=== PATIENT | male | born 1980 | race Caucasian/White ===

== ENCOUNTER 2019-08-20 19:51 | Emergency (ER) | payer OTHER, SELFPAY ==
--- NOTE | ~2019-08-20 | XR_ITS ---
EXAMINATION: XR chest 2V DATE: 08/20/2019 20:53 INDICATION: Left-sided chest pain. TECHNIQUE: PA and lateral views of the chest were obtained. COMPARISON: Thoracic spine radiographs dated 04/05/2004 FINDINGS: Mild right apical pleural-parenchymal scarring. Likely benign calcified density projecting between th e anterior left first and second ribs which is unchanged since the prior study. Approximately 2 x 1 c m nodular opacity the lateral left midlung zone projecting over the inferior margin of the anterior l eft fourth rib the region of which is not included on the prior imaging for comparison. No other airs pace opacities, pulmonary edema, pleural effusion or pneumothorax. The cardiomediastinal silhouette i s normal. Mild thoracic spondylosis. IMPRESSION: 1. Indeterminate nodular opacity the lateral left midlung zone which could represent old granulomatou s disease or less likely neoplasm. Consider low-dose noncontrast chest CT for more definitive determi nation. Reviewed, dictated and finalized at location A. IMPRESSION: 1. Indeterminate nodular opacity the lateral left midlung zone which could repr esent old granulomatous disease or less likely neoplasm. Consider low-dose nonc ontrast chest CT for more definitive determination.
--- NOTE | ~2019-08-20 | CT_ITS ---
EXAMINATION: CT chest w con DATE: 08/20/2019 21:19 INDICATION: left chest wall pain, swelling, wbc TECHNIQUE: Computed tomography (CT) of the chest was performed with 75 mL Omnipaque-350 intravenous c ontrast. Additional 3D reconstructions utilizing coronal maximum intensity projection (MIP) were perf ormed. Automated exposure control and iterative reconstruction technique were employed. The dose-heber th product was 158.62 mGy-cm. COMPARISON: None FINDINGS: Bilateral calcified pulmonary nodules consistent with old granulomatous disease. These include 2 larg er calcified nodules in the left upper lobe corresponding to the opacities of concern on the prior ch est radiograph. Mild right apical pleural-parenchymal scarring. Minimal dependent atelectasis in the bilateral lower lobes. Bilateral scattered subtle tiny centrilobular groundglass opacities with tree- in-bud pattern consistent with bronchiolitis. No more focal consolidation, pulmonary edema, pleural e ffusion or pneumothorax. Heart size is normal. No pericardial effusion. Thoracic aorta is normal in c aliber with no dissection. Although not performed as a dedicated pulmonary embolism protocol study th ere is excellent contrast pass location of the pulmonary arteries and no motion artifact yielding dennise gnostic quality study which demonstrates no pulmonary embolism. Calcified bilateral hilar and mediast inal lymph nodes consistent with old granulomatous disease. Mild thoracic spondylosis. A few small sp lenic calcified consistent with old granulomatous disease. Visualized upper abdomen is otherwise unre markable. IMPRESSION: 1. Diffuse bilateral subtle tiny centrilobular groundglass opacities with tree-in-bud pattern consist ent with bronchiolitis. 2. Stigmata of old granulomatous disease including 2 larger calcified nodules in the left lung corres ponding to the opacities of concern on prior radiograph. Reviewed, dictated and finalized at location A. IMPRESSION: 1. Diffuse bilateral subtle tiny centrilobular groundglass opacities with tree- in-bud pattern consistent with bronchiolitis. 2. Stigmata of old granulomatous disease including 2 larger calcified nodules i n the left lung corresponding to the opacities of concern on prior radiograph.
[2019-08-20 19:55] VITALS: BP 116/74; PULSE 97; RESP 20; TEMP 36.6; O2SAT 100
[2019-08-20 20:06] VITALS: BP 110/73; PULSE 92; RESP 18; O2SAT 100
--- NOTE | 2019-08-20 20:29 | ED.CHESTPAIN ---
HPI - Chest Pain General Chief Complaint: Chest Pain Stated Complaint: pulled something in chest Time Seen by Provider: 08/20/19 20:21 Source: patient Mode of arrival: ambulatory Limitations: no limitations History of Present Illness HPI narrative: This patient is a 38 year old male who presents for evaluation of left anterior chest pain. He states he woke up from his sleep yesterday with pain to left anterior chest and he states his pain is worse with lifting his left arm. He took aspirin last night for his pain and he continues to have pain. He denies heavy lifting or trauma. He denies cough, sob, nausea, vomiting or fever. Related Data Allergies Allergy/AdvReac Type Severity Reaction Status Date / Time morphine Allergy Mild Verified 09/24/18 14:52 peanut Allergy Unknown Verified 09/24/18 14:52 Review of Systems Review of Systems: All systems reviewed & are unremarkable except as noted in HPI and below Constitutional: Constitutional: Denies chills and Denies fever(s) Cardiovascular: Cardiovascular: Reports chest pain, Denies rapid heart rate, Denies radiating jaw, neck or arm pain and Denies slow heart rate Respiratory: Respiratory: Denies cough, Denies dyspnea and Denies wheezing Gastrointestinal: Gastrointestinal: Denies abdominal pain, Denies diarrhea, Denies nausea and Denies vomiting Musculoskeletal: Musculoskeletal: Reports back pain PMFSH Past Medical History Medical History (Updated 08/21/19 @ 00:00 by Renata Daemsimone) Patient denies medical problems Surgical History Surgical History (Updated 08/20/19 @ 20:30 by Hellen Felipe MD) No significant past surgical history Social History Social History (Updated 08/20/19 @ 20:31 by Hellen Felipe MD) Smoking packs per day: 1 Smoking cigarettes per day: 20.0 Smoking status: Current every day smoker Alcohol intake: never Substance use type: marijuana Exam Narrative: Exam Narrative: GENERAL: Well-appearing, well-nourished, and in no acute distress. HEAD: Normocephalic, atraumatic EYES: PERRLA and EOMI, conjunctiva clear without discharge THROAT:Mucous membranes moist, Oropharynx normal without erythema, exudate, peritonsillar swelling or fluctuance NECK: Supple, without lymphadenopathy or mass RESPIRATORY: No respiratory distress, Airway patent, Respirations non-labored, Clear to auscultation without rales, rhonchi or wheeze; reproducible tenderness left anterior with mild swelling, no crepitus. HEART: Regular rate and rhythm. No murmur heard. Normal peripheral pulses. ABDOMEN: Soft, nontender, nondistended, normal active bowel sounds. No masses. No rebound or guarding, No organomegaly. EXTREMITIES: No edema, normal strength with full range of motion. SKIN: Warm, dry, normal color without rash NEURO: Alert and oriented x3. CN 2-12 grossly intact. No focal deficits. PSYCH: Normal mood and affect. Course Reevaluation(s) Reevaluation #1: I Discussed with patient about CT findings. his pain is likely muscular. He denies cough or sob. Date: 08/20/19 Time: 23:10 Vital Signs Vital signs: Vital Signs Temperature 97.9 F 08/20/19 19:55 Pulse Rate 97 08/20/19 19:55 Respiratory Rate 20 08/20/19 19:55 Blood Pressure 116/74 08/20/19 19:55 Pulse Oximetry 100 08/20/19 19:55 Temperature 98.3 F 08/20/19 23:21 Pulse Rate 79 08/20/19 23:21 Respiratory Rate 19 08/20/19 23:21 Blood Pressure 116/74 08/20/19 23:21 Pulse Oximetry 100 08/20/19 23:21 MDM - Chest Pain Lab Data Attestation: I reviewed the patient's lab results. Result diagrams: 08/20/19 20:31 08/20/19 20:31 Labs: Lab Results 08/20/19 08/20/19 Range/Units 20:31 20:31 WBC 12.0 H (4.5-10.0) K/mm3 RBC 4.91 (4.6-6.20) M/mm3 Hgb 15.1 (14.0-18.0) g/dL Hct 45.4 (42.0-52.0) % MCV 92.5 (80-100) fl MCH 30.8 (26-34) pg MCHC 33.3 (32-36) g/dl RDW 13.7 (11.5-14.5)
[2019-08-20 20:37] LABS: Basophils Absolute Auto 0.1 K/mm3 (0.0-0.1); Basophils Percent Auto 0.7 % (0.2-1.2); Eosinophils Absolute Auto 0.5 K/mm3 (0-0.3); Eosinophils Percent Auto 3.9 % (0-4.4); Hematocrit 45.4 % (42.0-52.0); Hemoglobin 15.1 g/dL (14.0-18.0); Immature Granulocyte Absolute 0.07 K/mm3 (0.00-0.031); Immature Granulocyte Percent A 0.6 % (0-0.5); Lymphocytes Absolute Auto 2.68 K/mm3 (0.9-3.2); Lymphocytes Percent Auto 22.4 % (18.3-44.2); Mean Corpuscular HGB Conc 33.3 g/dl (32-36); Mean Corpuscular Hemoglobin 30.8 pg (26-34); Mean Corpuscular Volume 92.5 fl (80-100); Mean Platelet Volume 9.2 fl (7.4-10.4); Monocytes Percent Auto 8.7 % (2.6-8.5); Neutrophils Absolute Auto 7.6 K/mm3 (1.3-6.7); Neutrophils Percent Auto 63.7 % (45.5-73.1); Platelet Count Result 305 k/mm3 (150-375); Red Blood Count 4.91 M/mm3 (4.6-6.20); Red Cell Distribution Width 13.7 % (11.5-14.5)
[2019-08-20] MEDS: KETOROLAC 30 MG/ML VIAL (*BKC) IV PUSH (20:39)
[2019-08-20 20:50] LABS: Alanine Aminotransferase 26 U/L (4-50); Albumin Level 4.5 g/dL (3.5-5.1); Alkaline Phosphatase 77 U/L (38-126); Aspartate Amino Transferase 28 U/L (17-59); Bilirubin,Total 0.2 mg/dL (0.2-1.3); Blood Urea Nitrogen 14 mg/dL (9-20); CRP 2.9 mg/dL (<1.0); Calcium 9.1 mg/dL (8.4-10.2); Carbon Dioxide 28 mmol/L (22-30); Chloride 102 mmol/L (98-107); Estimated CRCL calculation 87 ml/min; Estimated Glomerular Filt Rate > 60; Glucose 95 mg/dL (75-110); Potassium 4.1 mmol/L (3.4-5.0); Sodium 136 mmol/L (137-145)
[2019-08-20 21:45] VITALS: BP 132/88; PULSE 61; RESP 18; O2SAT 98
[2019-08-20 23:01] VITALS: BP 126/72; PULSE 70; RESP 22; O2SAT 100
--- NOTE | 2019-08-20 23:13 | ECG_ITS ---
Measurements Intervals [place] Rate: 75 P: 78 HI: 127 QRS: 81 QRSD: 93 T: 43 QT: 312 QTc: 351 Interpretive Statements SINUS RHYTHM POSSIBLE LEFT ATRIAL ENLARGEMENT INCOMPLETE RIGHT BUNDLE BRANCH BLOCK BORDERLINE ECG Electronically Signed On 08-21-2019 8:09:51 CDT by Simba Lr D.O.
[2019-08-20 23:21] VITALS: BP 116/74; PULSE 79; RESP 19; TEMP 36.8; O2SAT 100
== END 2019-08-20 23:22 | disposition home or self-care (01) ==
PROVIDERS: Emergency Provider General Practice; PCP Internal Medicine
DX: R07.89 Other chest pain (principal); F17.210 Nicotine dependence, cigarettes, uncomplicated; R91.8 Other nonspecific abnormal finding of lung field; I45.10 Unspecified right bundle-branch block; R94.31 Abnormal electrocardiogram [ECG] [EKG]
CPT/HCPCS: 36415; 71046; 71260; 80053; 85025; 86140; 93005; 96374; 99284; J1885; Q9967

== ENCOUNTER 2020-01-09 01:17 | Emergency (ER) | payer OTHER, SELFPAY ==
[2020-01-09 01:19] VITALS: BP 138/81; PULSE 77; RESP 16; TEMP 36.2; O2SAT 100
--- NOTE | 2020-01-09 01:29 | ED.EYEPROB ---
HPI - Eye Problem General Chief complaint: Eye Problems Stated complaint: welding flash burn, cant open eyes Time Seen by Provider: 01/09/20 01:28 Source: patient and family Mode of arrival: ambulatory Limitations: no limitations History of Present Illness HPI Narrative: Patient is a 39-year-old male who presented for evaluation of bilateral eye pain after a flash burn from welding without eye protection. Patient is reporting photosensitivity to light. He is denying blurry vision. He denies any foreign body sensation. Patient does not wear contact lenses. He reports tearing and watering of the eyes. He reports bilateral eye redness. Related Data Allergies Allergy/AdvReac Type Severity Reaction Status Date / Time morphine Allergy Mild Verified 09/24/18 14:52 peanut Allergy Unknown Verified 09/24/18 14:52 Review of Systems Review of Systems: Narrative: CONSTITUTIONAL: Denies fever CARDIOVASCULAR: Denies chest pain RESPIRATORY: Denies cough or dyspnea. GASTROINTESTINAL: Denies abdominal pain SKIN: Denies rash MUSCULOSKELETAL: Denies back pain NEUROLOGIC: Denies headache PMFSH Past Medical History Medical History Patient denies medical problems Surgical History Surgical History No significant past surgical history Social History Social History Smoking packs per day: 1 Smoking cigarettes per day: 20.0 Smoking status: Current every day smoker Alcohol intake: never Substance use type: marijuana Exam Narrative: Exam Narrative: GENERAL: Awake, alert, conversant HEAD: Normocephalic, atraumatic. EYES: 2+ PERRLA and EOMI without difficulty. Bilateral conjunctival injection. Tearing of eyes bilaterally. ENT: Nares clear, no rhinorrhea or epistaxis. Mucous membranes moist. NECK: Supple. CHEST: No respiratory distress, breathing even and non labored HEART: Regular rate, sinus rhythm ABDOMEN:Non distended, non tender EXTREMITIES: Normal range of motion. No edema. SKIN: Warm, dry, no rash. NEURO:No focal deficits. Alert and oriented x3 Course Vital Signs Vital signs: Vital Signs Temperature 36.2 C L 01/09/20 01:19 Pulse Rate 77 01/09/20 01:19 Respiratory Rate 16 01/09/20 01:19 Blood Pressure 138/81 01/09/20 01:19 Pulse Oximetry 100 01/09/20 01:19 Temperature 36.2 C L 01/09/20 01:19 Pulse Rate 77 01/09/20 01:19 Respiratory Rate 16 01/09/20 01:19 Blood Pressure 138/81 01/09/20 01:19 Pulse Oximetry 100 01/09/20 01:19 MDM - Eye Problem MDM Narrative Medical decision making narrative: Patient presented for evaluation of flash burn to the eyes. At the time of assessment, visual acuity is intact. Patient has bilateral conjunctival injection and photosensitivity. On exam, there is a corneal abrasion in the right eye. Able to turkey picker some cell and flare in the anterior chamber as well. Patient extraocular movements are intact. pH of the eye is alkalotic on pH strip, this patient's eye was irrigated in each side with approximately 300 mL of flushes. pH retested and continues to be alkalotic. In consultation with [facility] ophthalmology physician, recommended recurrent irrigation until pH normalizes. Also recommended patient to get prednisolone eyedrops as well as cyclopentolate eyedrop prescriptions for pain. Patient will get erythromycin ointment for right-sided corneal abrasion. Patient refused to have additional irrigation. Patient stated he wanted to be discharged home. Patient does have follow-up with [facility] ophthalmology at 11 AM, I did explain that he would be leaving AGAINST MEDICAL ADVICE prior to adequate irrigation and this could lead an deterioration or possible vision loss. Patient voices understanding and refuses to stay for additional irrigation. Patient still given prescri
--- NOTE | 2020-01-09 04:24 | PC.NURSE ---
pt refusing having eyes irrigated per verbal request . notified. pt statesz i just want to go home. md states pt will have to sign ama form. pt educated on risks of not having eyes irrigated.
[2020-01-09 04:33] VITALS: BP 138/88; PULSE 70; RESP 16; O2SAT 99
== END 2020-01-09 04:40 | disposition left against medical advice (07) ==
PROVIDERS: Emergency Provider Emergency Medicine; PCP Internal Medicine
DX: H16.133 Photokeratitis, bilateral (principal); S05.01XA Injury of conjunctiva and corneal abrasion without foreign body, right eye, initial encounter; H20.00 Unspecified acute and subacute iridocyclitis; F17.210 Nicotine dependence, cigarettes, uncomplicated; W89.8XXA Exposure to other man-made visible and ultraviolet light, initial encounter
CPT/HCPCS: 90715; 99283; A9270; J7030

== ENCOUNTER 2020-09-06 21:01 | Emergency (ER) | payer OTHER, SELFPAY ==
[2020-09-06 21:24] VITALS: BP 134/71; PULSE 77; RESP 18; TEMP 36.8; O2SAT 100
--- NOTE | 2020-09-06 23:00 | PC.NURSE ---
called patient to go back to room multiple times and did not answer
== END 2020-09-06 23:00 | disposition left against medical advice (07) ==
LOC: ANHED 23:02
PROVIDERS: PCP Internal Medicine
DX: Z53.21 Procedure and treatment not carried out due to patient leaving prior to being seen by health care provider (principal)
CPT/HCPCS: 99199

== ENCOUNTER 2023-08-24 01:28 | Emergency (ER) | payer OTHER, SELFPAY ==
[2023-08-24 01:27] VITALS: BP 130/80; PULSE 71; RESP 16; TEMP 36.6; O2SAT 99
--- NOTE | 2023-08-24 01:56 | ED.GENADULT ---
HPI - General Adult General Chief complaint: Skin/Abscess/Foreign Body Stated complaint: burning to L upper arm Time Seen by Provider: 08/24/23 01:46 History of Present Illness HPI narrative: this is a 42-year-old male presenting for possible bite to his left upper extremity. Patient says that while he was walking home from the store around 1:00 a.m. he had a bite like sensation over his left biceps. He thinks that he got bit by a bug but he has not seen any bugs. He then had a some slight burning sensation. He called an ambulance and was brought to the hospital. No other complaints this time. Related Data Home Medications Medication Instructions Recorded Confirmed No Home Medications 09/06/20 09/06/20 Allergies Allergy/AdvReac Type Severity Reaction Status Date / Time morphine Allergy Mild Hives Verified 02/24/23 12:12 peanut Allergy Unknown Other Verified 02/24/23 12:12 [facility] Past Medical History Medical History Patient denies medical problems Surgical History Surgical History No significant past surgical history Social History Social History Smoking packs per day: 1 Smoking cigarettes per day: 20.0 Smoking status: Current every day smoker Alcohol intake: never Substance use type: marijuana Exam Narrative: APPEARANCE: No apparent distress. Head: atraumatic. EYES: EOMI, NOSE: Atraumatic NECK: Trachea midline RESPIRATORY: No increased rate of breathing CARDIOVASCULAR: RRR, ABDOMINAL: Non-distended MUSCULOSKELETAl: Focal exam of the left Upper extremity revealed no insect bites. No obvious erythema, no areas of fluctuance. Compartments are soft. Pulses are intact. tamper operator strength intact NEURO: Alert. Moving 4/4 extremities SKIN:: patient's hands are covered in dirt PSYCHIATRIC: Normal affect Course Vital Signs Vital signs: Vital Signs Temperature 97.8 F 08/24/23 01:27 Pulse Rate 71 08/24/23 01:27 Respiratory Rate 16 08/24/23 01:27 Blood Pressure 130/80 08/24/23 01:27 Pulse Oximetry 99 08/24/23 01:27 Oxygen Delivery Room Air 06/24/24 01:27 Temperature 97.8 F 08/24/23 01:27 Pulse Rate 71 08/24/23 01:27 Respiratory Rate 16 08/24/23 01:27 Blood Pressure 130/80 08/24/23 01:27 Pulse Oximetry 99 08/24/23 01:27 Oxygen Delivery Room Air 08/24/23 01:27 Medical Decision Making MDM Narrative Medical decision making narrative: -Course: 42-year-old male presenting for possible bug bite to his left bicep. Physical exam unremarkable with no findings of a bug bite or otherwise Patient discharged. -DDX includes but is not limited to: Bug bite, paresthesia, substance use disorder -Shared decision making / Disposition: discharged Vital Signs Vital Signs: Vital Signs Temperature 97.8 F 08/24/23 01:27 Pulse Rate 71 08/24/23 01:27 Respiratory Rate 16 08/24/23 01:27 Blood Pressure 130/80 08/24/23 01:27 Pulse Oximetry 99 08/24/23 01:27 Oxygen Delivery Room Air 08/24/23 01:27 Temperature 97.8 F 08/24/23 01:27 Pulse Rate 71 08/24/23 01:27 Respiratory Rate 16 08/24/23 01:27 Blood Pressure 130/80 08/24/23 01:27 Pulse Oximetry 99 08/24/23 01:27 Oxygen Delivery Room Air 08/24/23 01:27 Discharge Plan Discharge Clinical Impression: Bug bite Patient Disposition: Home, Self-Care Condition: Stable Instructions: Antibiotic Form, Insect Bite or Sting (ED) Additional Instructions: please follow-up with your primary care physician. Return if you develop severe pain or any skin changes. Prescriptions: No Action No Home Medications Follow-up/Referrals: Alejandro,Steve Rodriguez MD [Primary Care Provider] -
== END 2023-08-24 02:23 | disposition home or self-care (01) ==
LOC: ANHED 01:59
PROVIDERS: Emergency Provider Emergency Medicine
DX: S40.862A Insect bite (nonvenomous) of left upper arm, initial encounter (principal); F17.210 Nicotine dependence, cigarettes, uncomplicated; W57.XXXA Bitten or stung by nonvenomous insect and other nonvenomous arthropods, initial encounter
CPT/HCPCS: 99281

== ENCOUNTER 2024-05-07 15:01 | Emergency (ER) | payer OTHER, SELFPAY ==
--- NOTE | 2024-05-07 15:04 | ECG_ITS ---
Test Date: 2024-05-07 15:44:19 Measurements Intervals [place] Rate: 71 P: 77 FL: 142 QRS: 83 QRSD: 93 T: 70 QT: 350 QTc: 382 Interpretive Statements SINUS RHYTHM MINOR RV CONDUCTION DELAY BORDERLINE ECG No previous ECG available for comparison Electronically Signed On 05-07-2024 16:08:49 HAND GLASS CUTTER by Abhianv Shaw M.D.
--- OUTSIDE RECORDS SUMMARY | 2024-05-07 15:04 | XMS_ITS | Clinical Summary ---
Author Organization [facility] Address [address] [place] [id number] Care Team Providers Care Forensic Economist Name Role Phone Unavailable Primary Care Provider Unavailabl e Social History Tobacco Use Types Packs/Day Years Used Date Smoking Tobacco: Never Assessed Sex and Gender Information Value Date Recorded Sex Assigned at Not on file Legal Sex Male 8:23 PM CDT Gender Identity Not on file Sexual Orientation Not on file Plan of Treatment Health Maintenance Due Date Last Done Comments Annual Physical 08/31/1982 Hepatitis C 08/31/1997 DTaP, Tdap and Td Vaccines ( 1 - Tdap) 08/31/1998 Hepatitis B Vaccines (1 of 3 - 19+ 3-dose series) 08/31/1998 COVID-19 Vaccine (2023-2 5 season) 2023 Influenza Adult (#1) 2023 HPV Vaccines Aged Out No longer eligi ble based on patient's age to complete this topic Meningococcal B Vaccine Aged Out No l onger eligible based on patient's age to complete this topic Meningococcal Vaccine Aged Out No talha brian eligible based on patient's age to complete this topic Pneumococcal Vaccine: Pediat rics (0 to 5 Years) and At-Risk Patients (6 to 64 Years) Aged Out No longer eligible b ased on patient's age to complete this topic RSV Immunizations Under 20 Months Aged Out No longer eligible based on patient's age to complete this topic
[2024-05-07 15:34] VITALS: BP 108/67; PULSE 82; RESP 18; TEMP 36.5; O2SAT 100
--- NOTE | 2024-05-07 17:38 | PC.NURSE ---
No answer when called-unable to locate in waiting room or surrounding area
--- OUTSIDE RECORDS SUMMARY | 2024-05-07 17:45 | XMS_ITS | Clinical Summary ---
Author Organization [facility] Address [address] [place] [id number] Care Team Providers Care Zipper Measurer Name Role Phone Unavailable Primary Care Provider [...]
== END 2024-05-07 17:38 | disposition left against medical advice (07) ==
PROVIDERS: Emergency Provider Emergency Medicine
DX: R07.9 Chest pain, unspecified (principal)
CPT/HCPCS: 93005; 99199

== ENCOUNTER 2024-07-15 23:39 | Emergency (ER) | payer OTHER, SELFPAY ==
--- NOTE | ~2024-07-15 | CT_ITS ---
EXAMINATION: CT abdomen pelvis wo con DATE: 07/16/2024 07:35 INDICATION: Kidney stones TECHNIQUE: Computed tomography (CT) of the abdomen and pelvis was performed without intravenous contr ast. Automated exposure control and iterative reconstruction technique were employed. The dose-length product was 199.15 mGy-cm. COMPARISON: 09/24/2018 FINDINGS: Calcified right lower lobe nodule along with a few splenic calcifications consistent with old granulo matous disease. Chronic diffuse tree-in-bud pattern in the bilateral lower lobes with numerous subtle tiny centrilobular groundglass opacities. Heart size normal. No pericardial or pleural effusion. Priya er, gallbladder and pancreas are normal. Bilateral low-attenuation adrenal adenomas the largest on th e right measuring 2 x 1.5 cm. Kidneys and ureters are normal with no urolithiasis, hydroureteronephro sis or perinephric/ureteral stranding. Bowels including the appendix are normal. Decompressed bladder is unremarkable. No free intraperitoneal gas or fluid. No pathologically enlarged abdominal or pelvi c lymphadenopathy. Severe disc height loss with degenerative endplate changes at L5-S1. Unchanged chr onic mild anterior wedging at T12 and L1. There is additional age-indeterminate L4 compression fractu re with 20% anterior vertebral body height loss which is new since the prior study. IMPRESSION: 1. No nephrolithiasis or acute intra-abdominal/pelvic process. 2. Age-indeterminate mild L4 compression fracture which is new since the prior study. 3. Bilateral subtle tiny centrilobular groundglass opacities in tree-in-bud pattern consistent with b ronchiolitis. Reviewed, dictated and finalized at location A. IMPRESSION: 1. No nephrolithiasis or acute intra-abdominal/pelvic process. 2. Age-indeterminate mild L4 compression fracture which is new since the prior study. 3. Bilateral subtle tiny centrilobular groundglass opacities in tree-in-bud pat tern consistent with bronchiolitis.
--- OUTSIDE RECORDS SUMMARY | 2024-07-15 23:41 | XMS_ITS | Clinical Summary ---
Author Organization [facility] Address [address] [place] [id number] Care Team Providers Care Sap Mobility Architect Name Role Phone Unavailable Primary Care Provider [...] 08/31/1998 COVID-19 Vaccine (2023-2 5 season) 2023 HPV Vaccines Aged Out No longer eligi ble based on patient's age to complete this topic Meningococcal B Vaccine Aged Out No l onger eligible based on patient's age to complete this topic Meningococcal Vaccine Aged Out No talha brian eligible based on patient's age to complete this topic Pneumococcal Vaccine: Pediat rics (0 to 5 Years) and At-Risk Patients (6 to 49 Years) Aged Out No longer eligible b ased on patient's age to complete this topic RSV Immunizations Under 20 Months Aged Out No longer eligible based on patient's age to complete this topic
[2024-07-15 23:49] VITALS: BP 124/62; PULSE 58; RESP 24; TEMP 36.6; O2SAT 100
[2024-07-16 06:04] VITALS: BP 133/77; PULSE 89; RESP 14; O2SAT 100
[2024-07-16 06:14] LABS: Basophils Absolute Auto 0.1 K/mm3 (0.0-0.1); Basophils Percent Auto 0.3 % (0.2-1.2); Eosinophils Absolute Auto 0.1 K/mm3 (0-0.3); Eosinophils Percent Auto 0.3 % (0-4.4); Hematocrit 45.2 % (42.0-52.0); Hemoglobin 14.3 g/dL (14.0-18.0); Immature Granulocyte Absolute 0.06 K/mm3 (0.00-0.031); Immature Granulocyte Percent A 0.4 % (0-0.5); Lymphocytes Absolute Auto 1.52 K/mm3 (0.9-3.2); Lymphocytes Percent Auto 9.5 % (18.3-44.2); Mean Corpuscular HGB Conc 31.6 g/dl (32-36); Mean Corpuscular Hemoglobin 29.5 pg (26-34); Mean Corpuscular Volume 93.2 fl (80-100); Mean Platelet Volume 8.7 fl (7.4-10.4); Monocytes Absolute Auto 1.2 K/mm3 (0.1-0.6); Monocytes Percent Auto 7.6 % (2.6-8.5); Neutrophils Absolute Auto 13.1 K/mm3 (1.3-6.7); Neutrophils Percent Auto 81.9 % (45.5-73.1); Platelet Count Result 350 k/mm3 (150-375); Red Blood Count 4.85 M/mm3 (4.6-6.20); Red Cell Distribution Width 13.6 % (11.5-14.5)
[2024-07-16 06:31] LABS: Alanine Aminotransferase 22 U/L (6-50); Albumin Level 4.4 g/dL (3.5-5.1); Alkaline Phosphatase 62 U/L (38-126); Anion Gap 6 mmol/L (4-12); Aspartate Amino Transferase 34 U/L (17-59); Bilirubin,Total 0.5 mg/dL (0.2-1.3); Blood Urea Nitrogen 13 mg/dL (9-20); Calcium 9.5 mg/dL (8.4-10.2); Carbon Dioxide 25 mmol/L (22-30); Chloride 106 mmol/L (98-107); Estimated Glomerular Filt Rate > 60; Glucose 113 mg/dL (65-110); Potassium 4.7 mmol/L (3.4-5.0); Sodium 137 mmol/L (137-145)
[2024-07-16 07:06] VITALS: BP 134/84; PULSE 65; RESP 16; O2SAT 100
--- NOTE | 2024-07-16 07:39 | ED_ITS ---
HPI - Male Genitourinary General Chief complaint: Urogenital-Male Stated complaint: Backpain-poss kidney stone Time Seen by Provider: 07/16/24 07:33 Source: patient Mode of arrival: ambulatory Limitations: no limitations History of Present Illness HPI Narrative: Patient presents with left flank pain radiating to his groin starting at 9pm. States he has had kidney stones twice previously but they passed on their own without surgery/intermission. does not have a urologist. LBM yesterday w/o diarrhea, constipation, blood. States he was diaphoretic but no fevers or chills. Does admit drinking a lot of soda. Pain had been 11/30, now 5/10 occurring intermittently. Also requesting tetanus be updated as he stepped on a nail at his left foot a week or so ago. Does not have a PCP. Related Data Allergies Allergy/AdvReac Type Severity Reaction Status Date / Time morphine Allergy Mild Hives Verified 07/15/24 23:40 peanut Allergy Unknown Other Verified 07/15/24 23:40 PMFSH Past Medical History Medical History History of kidney stones x2 Surgical History Surgical History No significant past surgical history Social History Social History Smoking packs per day: 1 Smoking cigarettes per day: 20.0 Smoking status: Current every day smoker Alcohol intake: never Substance use type: marijuana Exam 2 Const: General: healthy appearing, no acute distress and alert; No confusion, diaphoretic or ill appearing Nutritional Appearance: well nourished L imitations: no limitations HENMT: Head: normal to inspection Other: gross auditory acuity intact Eyes: Direct Ophthalmoscopy: no photophobia Neck: Neck: no meningeal signs Other: supple Resp: Effort & Inspection: normal respiratory effort, not labored, no retractions, not tachypneic and no use of accessory muscles GI: Inspection: non-distended GI Palp: Yes Soft to palpation : General: Yes CVA tenderness on the left Skin: General skin exam: normal color and no jaundice Other: well healing wound on plantar aspect of left foot Neuro: General: patient oriented x3 and moves all extremities Speech: n ormal speech Extrem: General: no pedal edema Psych: Mental Status: mental status grossly normal Affect: normal affect, No Sad affect present and No Anxious affect present Attitude: cooperative Course Vital Signs Vital signs: Vital Signs Temperature 97.8 F 07/15/24 23:49 Pulse Rate 58 L 07/15/24 23:49 Respiratory Rate 24 H 07/15/24 23:49 Blood Pressure 124/62 07/15/24 23:49 Pulse Oximetry 100 07/15/24 23:49 Oxygen Delivery Room Air 07/15/24 23:49 Temperature 97.8 F 07/15/24 23:49 Pulse Rate 74 07/16/24 09:17 Respiratory Rate 16 07/16/24 09:17 Blood Pressure 134/84 07/16/24 07:06 Pulse Oximetry 98 07/16/24 09:17 Oxygen Delivery Room Air 07/15/24 23:49 MDM - Male Genitourinary MDM Narrative Medical decision making narrative: Patient presnts with concern for kidney stone althouth pain better now. In the ED he is afebrile with VS notable for mild bradycardia and tachypnea, both resolved on reassessment. Patient requesting tetanus shot for wound he sustained a few weeks ago when he stepped on a nail which otherwise appears appropriate and well healing on exam. He has a leukocytosis. Microscopic hematuria but otherwise urine does not appear infected. Differential Diagnosis Differential diagnosis: Likely urinary tract infection (pyelo) and other (muscle strain; kidney stone) Lab Data Attestation: I reviewed the patient's lab results. 07/16/24 06:06 07/16/24 06:06 Labs: Lab Results 07/16/24 07/16/24 Range/Units 06:06 08:37 WBC 16.0 H (4.5-10.0) K/mm3 RBC 4.85 (4.6-6.20) M/mm3 Hgb 14.3 (14.0-18.0) g/dL Hct 45.2 (42.0-52.0) % MCV 93.2 (80-100) fl MCH 29.5 (26-34) pg MCHC 31.6 L (32-36) g/dl RDW 13.6 (11.5-14.5) % Plt Count 350 (150-375) k/mm3 MPV 8.7 (7.4-10.4) fl Immature Gran % (Auto) 0.4 (0-0.5) % Neut % (Auto) 81.9 H (45.5-73.1) % Lymph % (Auto) 9.5 L (18.3-44.2) % [place] % (Auto) 7.6 (2.6-8.5) % Eos % (Auto) 0.3 (0-4.4) % Baso % (Auto) 0.3 (0.2-1.2) % Lymph # (Auto) 1.52 (0.9-3.2) K/mm3 [place] # (Auto) 1.2 H (0.1-0.6) K/mm3 Eos # (Auto) 0.1 (0-0.3) K/mm3 Baso # (Auto) 0.1 (0.0-0.1) K/mm3 Abs Immat Gran (auto) 0.06 H (0.00-0.031) K/mm3 Absolute Neuts (auto) 13.1 H (1.3-6.7) K/mm3 Absolute Nucleated RBC 0.000 (0.0-0.012) K/mm3 Nucleated RBC % 0.0 (0.0-0.2) % Sodium 137 (137-145) mmol/L Potassium 4.7 (3.4-5.0) mmol/L Chloride 106 (98-107) mmol/L Carbon Dioxide 25 (22-30) mmol/L Anion Gap 6 (4-12) mmol/L BUN 13 (9-20) mg/dL Creatinine 0.92 (0.7-1.3) mg/dL Estim Creat Clear Calc Not Reportable Estimated GFR > 60 (59 - ) Glucose 113 H (65-110) mg/dL Calcium 9.5 (8.4-10.2) mg/dL Total Bilirubin 0.5 (0.2-1.3) mg/dL AST 34 (17-59) U/L ALT 22 (6-50) U/L Alkaline Phosphatase 62 (38-126) U/L Total Protein 8.0 (6.3-8.2) g/dL Albumin 4.4 (3.5-5.1) g/dL Urine Color Yellow (Yellow) Urine Appearance Clear (Clear) Urine pH 6.5 (5.0-9.0) Ur Specific [place] 1.007 (1.001-1.035) Urine Protein Negative (Negative) mg/dL Urine Glucose (UA) Negative (Negative) mg/dL Urine Ketones Negative (Negative) mg/dL Ur Blood (Man) 2+ H (Negative) Urine Nitrate Negative (Negative) Urine Bilirubin Negative (Negative) Urine Urobilinogen 0.2 (<2.0) mg/dL Leukocyte Esterase Rfl Negative (Negative) REGINA/UL Urine RBC 3-5 H (0-2) /hpf Urine WBC 0-5 (0-3) /hpf Ur Squamous Epith Cells None seen (Few) /hpf Urine Bacteria None seen /hpf Urine Casts 0-2 Imaging Data Radiologist's impression: IMPRESSION: 1. No nephrolithiasis or acute intra-abdominal/pelvic process. 2. Age-indeterminate mild L4 compression fracture which is new since the prior study. 3. Bilateral subtle tiny centrilobular groundglass opacities in tree-in-bud pattern consistent with bronchiolitis. Discharge Plan Discharge Clinical Impression: [id number]-cgmhdnt (DPT) vaccination administered at current visit, Acute left flank pain, Compression fracture of L4 vertebra, Ground glass opacity present on imaging of lung, Hematuria, microscopic Patient Disposition: Home Condition: Stable Instructions: Antibiotic Form, Bronchiolitis (ED), Kidney Stones (ED), Vertebral Compression Fracture (ED), Hematuria (ED), Flank Pain (ED) Additional Instructions: No kidney stone or other issues within your GI tract seen on imaging. You did have some very slight blood in your urine so, as you suspected, you might have had a kidney stone that passed spontaneously already. No signs of a urinary tract infection through. It is safe to take both acetaminophen and ibuprofen if pain recurs. Follow up with your primary care physician. Because you do not have one, the name of one is listed below. At your request, we gave you a tetanus shot today because of the wound to your foot earlier which otherwise appears to be healing well without infection. Return to the ED with new/worsening symptoms. Patient Language: Vietnamese Prescriptions: New ibuprofen 600 mg tablet 600 mg PO TID PRN (Reason: pain) Qty: 30 0RF acetaminophen 500 mg capsule 1,000 mg PO Q6H PRN (Reason: pain) Qty: 30 0RF Follow-up/Referrals: UNKNOWN,DOCTOR [Non-Staff] - Nany Shah DO [Physician] - Stand Alone Forms: Work/School Release IP Time of Disposition: 09:01
--- OUTSIDE RECORDS SUMMARY | 2024-07-16 07:44 | XMS_ITS | Clinical Summary ---
Author Organization [facility] Address [address] [place] [address] Care Team Providers Care Water Project Engineer Name Role Phone Unavailable Primary Care Provider [...]
[2024-07-16] MEDS: ACETAMINOPHEN 500 MG TABLET 1000 MG PO (08:34)
[2024-07-16] MEDS: TETANUS,DIPHTHERIA,AC PERTUSSIS ADULT (0.5 ML) BOOSTRIX IM (08:34)
[2024-07-16 08:49] LABS: Add Urine Microscopic? YES; Appearance Urine Clear (Clear); Bacteria Urine None Seen /hpf; Bilirubin Urine Negative (Negative); Blood Urine 2+ (Negative); Color Urine Yellow (Yellow); Glucose Urine UA Negative (Negative); Ketones Urine Negative (Negative); Leukocyte Esterase Ur Negative LEU/UL (Negative); Nitrate Urine Negative (Negative); Non Pathogenic Casts 0-2; Protein Urine Negative (Negative); Specific Grav Ur 1.007 (1.001-1.035); Squamous Epithelial Cell Urine None Seen /hpf (Few); Urobilinogen Urine 0.2 mg/dL (<2.0); WBC Urine 0-5 /hpf (0-3); pH Urine 6.5 (5.0-9.0)
[2024-07-16 09:17] VITALS: PULSE 74; RESP 16; O2SAT 98
== END 2024-07-16 09:17 | disposition home or self-care (01) ==
PROVIDERS: Student in an Organized Health Care Education/Training Program; Emergency Provider Student in an Organized Health Care Education/Training Program
DX: R10.9 Unspecified abdominal pain (principal); R31.29 Other microscopic hematuria; R91.8 Other nonspecific abnormal finding of lung field; M48.56XA Collapsed vertebra, not elsewhere classified, lumbar region, initial encounter for fracture; S91.332A Puncture wound without foreign body, left foot, initial encounter; F17.210 Nicotine dependence, cigarettes, uncomplicated; Z87.442 Personal history of urinary calculi; W45.0XXA Nail entering through skin, initial encounter
CPT/HCPCS: 36415; 74176; 80053; 81001; 85025; 90471; 90715; 99284; A9270

== ENCOUNTER 2024-11-24 09:27 | Emergency (ER) | payer OTHER, SELFPAY ==
--- NOTE | ~2024-11-24 | CT_ITS ---
EXAMINATION: CT chest abdomen pelvis w con, 11/24/2024 10:30 CDT HISTORY: left sided axillary chest/ab pain COMPARISON: Comparison 07/16/2024. TECHNIQUE: CT scan of the chest, abdomen and pelvis was performed with contrast Isovue 300, 92cc injected IV. One or more of the following dose reduction techniques were used: automated exposure control, adjustment of the mA and/or kV according to patient size, use of iterative reconstruction technique. Unless otherwise stated, incidental findings do not require dedicated follow up imaging FINDINGS: CT chest: No significant coronary calcification is present ([id number]) LUNGS: No tracheomalacia. No bronchiectasis. Mild to moderate emphysematous changes, no bullous formation identified. There are mild pulmonary fibrotic changes however no honeycombing. Apical scarring is noted bilaterally. There are scattered the [place] 2 mm micronodules noted with bilateral scattered calcified granulomas with dominant probable calcified granuloma in the left lower lobe measuring 12 x 10 mm however the calcification is difficult to characterize. HEART AND PERICARDIUM: Within normal limits. AORTA: Normal caliber aorta. MEDIASTINUM: There are calcified mediastinal, subcarinal and hilar lymph nodes the largest measuring 1.2 x 1.4 cm in the pretracheal space. THYROID: The thyroid is unremarkable. CT abdomen: LIVER: The main portal vein is patent. No intrahepatic biliary duct dilatation. SPLEEN: Unremarkable, no splenomegaly. KIDNEYS: Right Kidney: Unremarkable. No calculi. No hydronephrosis. Left Kidney: Unremarkable. No calculi. No hydronephrosis ADRENAL GLANDS: Unremarkable. PANCREAS: GALLBLADDER/BILIARY: Unremarkable. No biliary dilatation. STOMACH AND ESOPHAGUS: Visualized stomach and esophagus within normal limits. BOWEL/MESENTERY: No colitis or diverticulitis. Appendix is a prominent however there is no periappendiceal inflammation. No stranding within the mesentery. No dilated or thickened loops of small bowel. RETROPERITONEUM: Unremarkable AORTA/VASCULATURE: Normal caliber aorta. FREE FLUID OR FREE AIR: No free fluid.. CT pelvis: SOLID ORGANS/REPRODUCTIVE: Unremarkable. BLADDER: The bladder is distended. LYMPHADENOPATHY: There are prominent lymph nodes noted in the left axilla however there is no lymphadenopathy. OSSEOUS STRUCTURES: No sclerotic or lytic lesions. OVERLYING SOFT TISSUES: Unremarkable. IMPRESSION: 1. Sequelae of previous granulomatous disease detailed above with no acute process identified Reviewed, dictated and finalized at location A. IMPRESSION: 1. Sequelae of previous granulomatous disease detailed above with no acute proc ess identified
--- NOTE | ~2024-11-24 | XR_ITS ---
EXAMINATION: XR chest 2V DATE: 11/24/2024 09:59 INDICATION: Chest pain TECHNIQUE: PA and lateral views of the chest were obtained. COMPARISON: Chest radiograph dated 08/20/2019 FINDINGS: There are 3 unchanged calcified nodules in the left lung consistent with old granulomatous disease. No other airspace opacities, pulmonary edema, pleural effusion or pneumothorax. The cardiomediastinal silhouette is normal. Mild thoracic spondylosis with chronic mild anterior wedging of T12 and L1. IMPRESSION: 1. No acute cardiopulmonary disease. Reviewed, dictated and finalized at location A.
[2024-11-24 09:28] VITALS: BP 143/93; PULSE 91; RESP 23; TEMP 36.7; O2SAT 100
[2024-11-24 09:36] VITALS: PULSE 86; O2SAT 100
--- NOTE | 2024-11-24 09:38 | ECG_ITS ---
Test Date: 2024-11-24 09:42:24 Measurements Intervals [place] Rate: 101 P: 85 [place]: 117 QRS: 81 QRSD: 89 T: 60 QT: 321 QTc: 416 Interpretive Statements REDUCED ECG QUALITY BECAUSE OF BASELINE ARTIFACT SINUS TACHYCARDIA OTHERWISE GROSSLY NORMAL ECG ABNORMAL RHYTHM ECG Compared to ECG 05/07/2024 15:44:19 NO SIGNIFICANT CHANGE Electronically Signed On 11-24-2024 12:46:50 CDT by Abhinav Shaw M.D.
--- NOTE | 2024-11-24 10:10 | ED_ITS ---
HPI - General Adult General Chief complaint: Chest Pain Stated complaint: cp Time Seen by Provider: 11/24/24 09:45 History of Present Illness HPI narrative: 44-year-old male present to the emergency department for evaluation for left- sided chest pain. Patient has had intermittent chest pain over the last 2 months. Patient has a middle describe what makes the pain better or worse. Patient is unable to describe the nature of the pain. Patient states today the pain did acutely worsen. Patient does describe left-sided chest pain that radiates down to his abdomen. Patient is uncomfortable appearing at time of evaluation. Patient is a poor historian. Related Data Allergies Allergy/AdvReac Type Severity Reaction Status Date / Time morphine Allergy Mild Hives Verified 11/24/24 09:36 peanut Allergy Unknown Other Verified 11/24/24 09:36 Review of Systems 2 Review of Systems: All systems reviewed & are unremarkable except as noted in HPI and below PMFSH Past Medical History Medical History History of kidney stones x2 Surgical History Surgical History No significant past surgical history Social History Social History Smoking packs per day: 1 Smoking cigarettes per day: 20.0 Smoking status: Current every day smoker Alcohol intake: never Substance use type: marijuana Exam 2 Narrative: APPEARANCE: Uncomfortable appearing HEAD: normocephalic, atraumatic. EYES: PERRLA/EOMI, conjunctivae clear. NOSE: Normal no drainage EARS:TMS clear with good light reflex. THROAT: Pharynx clear, no exudate. NECK: Supple. No adenopathy, no masses. RESPIRATORY: Airway patent, respirations nonlabored. Clear to auscultation bilaterally, no rales, rhonchi, wheezing. CARDIOVASCULAR: Regular rate and rhythm without murmurs rubs or gallops. ABDOMINAL: Soft, nontender, nondistended, normal bowel sounds MUSCULOSKELETAL: Left-sided chest wall tenderness to palpation NEURO: Alert. Cranial nerves II through XII intact. Good gait. Good coordination SKIN: Warm, dry. Normal Color Course Vital Signs Vital signs: Vital Signs Temperature 98.1 F 11/24/24 09:28 Pulse Rate 91 11/24/24 09:28 Respiratory Rate 23 H 11/24/24 09:28 Blood Pressure 143/93 H 11/24/24 09:28 Pulse Oximetry 100 11/24/24 09:28 Oxygen Delivery Room Air 11/24/24 09:28 Temperature 97.6 F 11/24/24 13:55 Pulse Rate 60 11/24/24 13:55 Respiratory Rate 13 11/24/24 13:55 Blood Pressure 105/65 11/24/24 13:55 Pulse Oximetry 99 11/24/24 13:55 Oxygen Delivery Room Air 11/24/24 09:36 Medical Decision Making MDM Narrative Medical decision making narrative: 44-year-old male present emergency department for evaluation for left-sided abdominal pain. Patient is currently afebrile no leukocytosis hemoglobin 15.7. Patient has INR 0.9. No acute abnormalities the patient's CMP. Patient has normal T bili AST ALT alk-phos. Patient has negative serial troponins. Lipase is not elevated. CT chest abdomen pelvis shows sequelae of previous granulomatous disease but no acute abnormalities noted on imaging. Chest x-ray showed no acute cardiopulmonary abnormality. EKG showed normal sinus rhythm. On re-evaluation patient did report feeling improved after treatment. Patient will be encouraged close follow-up with primary care physician for additional outpatient cardiac testing. Differential Diagnosis Differential Diagnosis: Aortic dissection, pulmonary embolism, pneumonia, pneumothorax, ACS Vital Signs Vital Signs: Vital Signs Temperature 98.1 F 11/24/24 09:28 Pulse Rate 91 11/24/24 09:28 Respiratory Rate 23 H 11/24/24 09:28 Blood Pressure 143/93 H 11/24/24 09:28 Pulse Oximetry 100 11/24/24 09:28 Oxygen Delivery Room Air 11/24/24 09:28 Temperature 97.6 F 11/24/24 13:55 Pulse Rate 60 11/24/24 13:55 Respiratory Rate 13 11/24/24 13:55 Blood Pressure 105/65 11/24/24 13:55 Pulse Oximetry 99 11/24/24 13:55 Oxygen Delivery Room Air 11/24/24 09:36 Lab Data Lab results reviewed: Yes I reviewed the patient's lab results. 11/24/24 10:08 11/24/24 10:08 Labs: Lab Results 11/24/24 11/24/24 Range/Units 10:08 13:12 WBC 9.5 (4.5-10.0) K/mm3 RBC 5.14 (4.6-6.20) M/mm3 Hgb 15.7 (14.0-18.0) g/dL Hct 46.9 (42.0-52.0) % MCV 91.2 (80-100) fl MCH 30.5 (26-34) pg MCHC 33.5 (32-36) g/dl RDW 13.6 (11.5-14.5) % Plt Count 348 (150-375) k/mm3 MPV 8.5 (7.4-10.4) fl Immature Gran % (Auto) 0.4 (0-0.5) % Neut % (Auto) 68.1 (45.5-73.1) % Lymph % (Auto) 20.6 (18.3-44.2) % [place] % (Auto) 8.2 (2.6-8.5) % Eos % (Auto) 2.0 (0-4.4) % Baso % (Auto) 0.7 (0.2-1.2) % Lymph # (Auto) 1.96 (0.9-3.2) K/mm3 [place] # (Auto) 0.8 H (0.1-0.6) K/mm3 Eos # (Auto) 0.2 (0-0.3) K/mm3 Baso # (Auto) 0.1 (0.0-0.1) K/mm3 Abs Immat Gran (auto) 0.04 H (0.00-0.031) K/mm3 Absolute Neuts (auto) 6.5 (1.3-6.7) K/mm3 Absolute Nucleated RBC 0.000 (0.0-0.012) K/mm3 Nucleated RBC % 0.0 (0.0-0.2) % PT 12.5 (11.1-14.7) Seconds INR 0.9 APTT 25.5 (22.3-36.8) Seconds Sodium 136 L (137-145) mmol/L Potassium 3.9 (3.4-5.0) mmol/L Chloride 104 (98-107) mmol/L Carbon Dioxide 25 (22-30) mmol/L Anion Gap 7 (4-12) mmol/L BUN 11 (9-20) mg/dL Creatinine 0.88 (0.7-1.3) mg/dL Estim Creat Clear Calc Not Reportable Estimated GFR > 60 (59 - ) Glucose 85 (65-110) mg/dL Calcium 9.6 (8.4-10.2) mg/dL Total Bilirubin 0.3 (0.2-1.3) mg/dL AST 28 (17-59) U/L ALT 20 (6-50) U/L Alkaline Phosphatase 74 (38-126) U/L Troponin I < 0.012 < 0.012 (0.000-0.034) ng/mL Total Protein 7.8 (6.3-8.2) g/dL Albumin 4.4 (3.5-5.1) g/dL Lipase 175 (23-300) U/L Imaging Data My impression: Chest x-ray: No acute cardiopulmonary abnormality Radiologist's impression: Impressions Chest X-Ray 11/24/24 09:59 IMPRESSION: 1. No acute cardiopulmonary disease. Chest/Abdomen/Pelvis CT 11/24/24 11:20 IMPRESSION: 1. Sequelae of previous granulomatous disease detailed above with no acute process identified ECG Data EKG #1: EKG Interpretation: normal rate, sinus rhythm, no ectopy, non-specific ST changes, normal QRS, normal QT and NL axis Discharge Plan Discharge Clinical Impression: Atypical chest pain Patient Disposition: Home Condition: Stable Instructions: Antibiotic Form, Chest Wall Pain (ED) Additional Instructions: Tylenol and ibuprofen for pain control. Have close follow-up with primary care physician for additional outpatient cardiac testing. If you have any worsening symptoms then please call or return to the emergency department. Patient Language: Syriac Prescriptions: No Action ibuprofen 600 mg tablet 600 mg PO TID PRN (Reason: pain) Qty: 30 0RF acetaminophen 500 mg capsule 1,000 mg PO Q6H PRN (Reason: pain) Qty: 30 0RF Follow-up/Referrals: PHYSICIAN,MILLROOM SUPERVISOR [Primary Care Provider, Internal Medicine] Quality HEART score for chest pain patients History: slightly suspicious ECG: normal Age: < or = to 45 years Risk factors: 1 or 2 risk factors Troponin: < or = to 1x normal limit Heart score: 1
[2024-11-24 10:16] LABS: Hematocrit 46.9 % (42.0-52.0); Hemoglobin 15.7 g/dL (14.0-18.0); Immature Granulocyte Percent A 0.4 % (0-0.5); Lymphocytes Absolute Auto 1.96 K/mm3 (0.9-3.2); Mean Corpuscular HGB Conc 33.5 g/dl (32-36); Mean Corpuscular Hemoglobin 30.5 pg (26-34); Mean Corpuscular Volume 91.2 fl (80-100); Nucleated Red Blood Cells Absolute Auto 0.000 K/mm3 (0.0-0.012); Nucleated Red Blood Cells Perc 0.0 % (0.0-0.2); Platelet Count Result 348 k/mm3 (150-375); Red Blood Count 5.14 M/mm3 (4.6-6.20); White Blood Count 9.5 K/mm3 (4.5-10.0)
[2024-11-24] MEDS: HYDROmorphone HCL INJ (*CRX) 1 MG/ML SYR IV PUSH (10:26)
[2024-11-24 10:29] VITALS: BP 124/80; PULSE 82; RESP 25; O2SAT 99
[2024-11-24 10:32] LABS: Alanine Aminotransferase 20 U/L (6-50); Albumin Level 4.4 g/dL (3.5-5.1); Alkaline Phosphatase 74 U/L (38-126); Anion Gap 7 mmol/L (4-12); Aspartate Amino Transferase 28 U/L (17-59); Bilirubin,Total 0.3 mg/dL (0.2-1.3); Blood Urea Nitrogen 11 mg/dL (9-20); Calcium 9.6 mg/dL (8.4-10.2); Carbon Dioxide 25 mmol/L (22-30); Chloride 104 mmol/L (98-107); Estimated Glomerular Filt Rate > 60; Glucose 85 mg/dL (65-110); Lipase 175 U/L (23-300); Potassium 3.9 mmol/L (3.4-5.0); Sodium 136 mmol/L (137-145); Total Protein 7.8 g/dL (6.3-8.2)
[2024-11-24 10:38] LABS: INR 0.9; Prothrombin Time 12.5 Seconds (11.1-14.7); Troponin I < 0.012 ng/mL (0.000-0.034)
[2024-11-24 10:39] LABS: Partial Thromboplastin Time 25.5 Seconds (22.3-36.8)
--- OUTSIDE RECORDS SUMMARY | 2024-11-24 11:08 | XMS_ITS | Clinical Summary ---
Author Organization [facility] Address [address] [place] [id number] Care Team Providers Care Pulley Man Name Role Phone Unavailable Primary Care Provider Unavailabl e Social History Tobacco Use Types Packs/Day Years Used Date Smoking Tobacco: Never Assessed Sex and Gender Information Value Date Recorded Sex Assigned at Not on file Legal Sex Male 8:23 PM CDT Gender Identity Not on file Sexual Orientation Not on file Plan of Treatment Health Maintenance Due Date Last Done Comments Colorectal Cancer Screening Colonoscopy (10 Years) 1979 Annual Physical 08/31/1982 Hepatitis C 08/31/1997 DTaP, Tdap and Td Vaccines ( 1 - Tdap) 08/31/1998 Hepatitis B Vaccines (1 of 3 - 19+ 3-dose series) 08/31/1998 HPV Vaccines (1 - 3-dose SCD M series) 08/31/2006 COVID-19 Vaccine (2023-2 5 season) 2024 Meningococcal B Vaccine Aged Out No l [...]
[2024-11-24 11:22] VITALS: BP 122/74; PULSE 66; RESP 19; O2SAT 98
--- NOTE | 2024-11-24 13:12 | ECG_ITS ---
Test Date: 2024-11-24 13:33:18 Measurements Intervals [place] Rate: 60 P: 74 [place]: 139 QRS: 67 QRSD: 89 T: 52 QT: 364 QTc: 365 Interpretive Statements SINUS RHYTHM POSSIBLE LEFT ATRIAL ENLARGEMENT [-0.1mV P WAVE IN V1/V2] Compared to ECG 11/24/2024 09:42:24 Sinus tachycardia no longer present Electronically Signed On 11-24-2024 13:58:32 CDT by Shahbaz Kramer M.D.
[2024-11-24 13:35] VITALS: BP 107/74; PULSE 64; RESP 13; O2SAT 100
[2024-11-24 13:39] LABS: Troponin I < 0.012 ng/mL (0.000-0.034)
[2024-11-24 13:55] VITALS: BP 105/65; PULSE 60; RESP 13; TEMP 36.4; O2SAT 99
== END 2024-11-24 13:55 | disposition home or self-care (01) ==
PROVIDERS: Emergency Provider Emergency Medicine
DX: R07.89 Other chest pain (principal); F17.210 Nicotine dependence, cigarettes, uncomplicated; F12.90 Cannabis use, unspecified, uncomplicated
CPT/HCPCS: 36415; 71046; 71260; 74177; 80053; 83690; 84484; 85025; 85610; 85730; 93005; 96374; 99284; J1171; Q9967

== ENCOUNTER 2025-02-01 13:39 | Emergency (ER) | payer OTHER, SELFPAY ==
--- NOTE | ~2025-02-01 | XR_ITS ---
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 COMPARISON: No comparisons available. Technique: 2 views obtained. Findings: There is no distention of the pharynx or hypopharynx. No metallic radiopaque foreign body identified. Epiglottis and retropharyngeal tissues appear unremarkable. Osseous structures are unremarkable. IMPRESSION: No metallic radiopaque foreign body identified Reviewed, dictated and finalized at location P. ELING REPAIR ACCOUNTANT
--- NOTE | ~2025-02-01 | XR_ITS ---
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 Technique: 2 views obtained. Findings: Large probable calcified granuloma noted in the left midlung measuring 1 x 1 cm. No pneumothorax. Heart is normal size. Mediastinal and hilar contours are within normal limits. Bony thorax no acute abnormality. Impression: There is no gross radiopaque metallic foreign body identified. If symptoms persist CT is recommended to further assess. Reviewed, dictated and finalized at location P. O PLAYER Impression: There is no gross radiopaque metallic foreign body identified. If symptoms pers ist CT is recommended to further assess.
[2025-02-01 13:46] VITALS: BP 117/79; PULSE 88; RESP 18; TEMP 37.1; O2SAT 100
[2025-02-01 13:53] VITALS: O2SAT 100
[2025-02-01 14:15] VITALS: PULSE 72; RESP 20
[2025-02-01] MEDS: IPRATROPIUM 0.5 MG/ALBUTEROL SULFATE 2.5 MG (BASE) AMPUL.NEB 3 ML INHALATION (14:15)
[2025-02-01 14:25] VITALS: PULSE 78; RESP 20
--- OUTSIDE RECORDS SUMMARY | 2025-02-01 15:08 | XMS_ITS | Clinical Summary ---
Author Organization [facility] Address [address] [place] [id number] Care Team Providers Care Animal Pathology Teacher Name Role Phone Unavailable Primary Care Provider [...] 3-dose SCD M series) 08/31/2006 COVID-19 Vaccine (2024-2 6 season) 2024 Influenza Adult (#1) 2024 Hepatitis A Vaccines Aged Out No long er eligible based on patient's age to complete [...]
--- NOTE | 2025-02-01 15:10 | ED.SOB ---
HPI - SOB/Dyspnea General Chief Complaint: Skin/Abscess/Foreign Body Stated Complaint: thinks he inhaled a metal mesh Time Seen by Provider: 02/01/25 13:43 History of Present Illness HPI Narrative: Patient was smoking when he thinks that he may have inhaled some metal mesh from the pipe, he was reporting some shortness of breath, has been ongoing for the last day and wanted to come get checked out. Been smoking since he was 14. Related Data Allergies Allergy/AdvReac Type Severity Reaction Status Date / Time morphine Allergy Mild Hives Verified 11/24/24 09:36 peanut Allergy Unknown Other Verified 11/24/24 09:36 Review of Systems Review of Systems: All systems reviewed & are unremarkable except as noted in HPI and below PMFSH Past Medical History Medical History History of kidney stones x2 Surgical History Surgical History No significant past surgical history Social History Social History Smoking packs per day: 1 Smoking cigarettes per day: 20.0 Smoking status: Current every day smoker Alcohol intake: never Substance use type: marijuana Exam Narrative: EXAMINATION OF ORGAN SYSTEMS/BODY AREAS: Constitutional: Vital signs per nursing GENERAL:[No acute distress, non-toxic appearing.] HEAD: Normal with no signs of head trauma. EYES: EOMI, conjunctiva normal ENT: Hearing grossly intact LUNGS: Nonlabored breathing. Diminished breath sounds bilaterally HEART: [Regular rate and rhythm] ABD: [Soft], [nontender to palpation] EXT: Normal range of motion SKIN: [No rashes or lesions.] NEURO: [Alert. No gross focal sensory or strength deficits.] PSYCH: Normal affect Course Vital Signs Vital signs: Vital Signs Temperature 98.7 F 02/01/25 13:46 Pulse Rate 88 02/01/25 13:46 Respiratory Rate 18 02/01/25 13:46 Blood Pressure 117/79 02/01/25 13:46 Pulse Oximetry 100 02/01/25 13:46 Oxygen Delivery Room Air 02/01/25 13:46 Temperature 98.7 F 02/01/25 13:46 Pulse Rate 78 02/01/25 14:25 Respiratory Rate 20 02/01/25 14:25 Blood Pressure 117/79 02/01/25 13:46 Pulse Oximetry 100 02/01/25 13:53 Oxygen Delivery Room Air 02/01/25 13:53 [facility] Narrative Medical decision making narrative: Patient presents with shortness of breath after thinking he may inhaled metal from his pipe. He is well-appearing here, in no distress, some diminished lung sounds, I will trial some breathing treatments in case this is bronchitis. X-rays obtained did not show any foreign body. Patient reassured, feels better after breathing treatments, I will therefore give him albuterol and some steroids, he is instructed to stop smoking. Follow-up to PCP provided with return precautions Differential Diagnosis Differential Diagnosis: Bronchitis, pneumothorax, foreign body, etc. Imaging Data Radiologist's impression: ITS Impressions Chest X-Ray 02/01/25 14:04 Impression: There is no gross radiopaque metallic foreign body identified. If symptoms persist CT is recommended to further assess. Soft Tissue Neck X-Ray 02/01/25 14:06 IMPRESSION: No metallic radiopaque foreign body identified Discharge Plan Discharge Clinical Impression: Shortness of breath Patient Disposition: Home Condition: Stable Instructions: Shortness of Breath (ED) Additional Instructions: Your x-rays today thankfully did not show any signs of metal. Try to stop smoking, try the medications as prescribed, and you could return to the ER for any further issues. Patient Language: Citizen Of [place] Prescriptions: New prednisone 20 mg tablet 40 mg PO DAILY 4 Days Qty: 8 0RF albuterol sulfate 90 mcg/actuation HFA aerosol inhaler 2 puff inhalation QID PRN (Reason: shortness of breath or wheezing) Qty: 8.5 0RF No Action ibuprofen 600 mg tablet 600 mg PO TID PRN (Reason: pain) Qty: 30 0RF acetaminophen 500 mg capsule 1,000 mg PO Q6H PRN (Reason: pain) Qty: 30 0RF Follow-up/Referrals: PHYSICIAN,DIGITAL CAMPAIGN SPECIALIST [Primary Care Provider, Internal Medicine] Michael Holguin MD [Physician, Family Practice] - 2 Days
--- NOTE | 2025-02-01 15:41 | PCCCNOTE ---
Was called down to see a Pt that was discharged from the ED that needed bus tokens to get home. 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 Pt given the 2 tokens and stated he knew the times and busses already. No further needs from [facility] at this time. CR
== END 2025-02-01 15:27 | disposition home or self-care (01) ==
PROVIDERS: Emergency Provider Emergency Medicine
DX: R06.02 Shortness of breath (principal); F17.210 Nicotine dependence, cigarettes, uncomplicated; Z87.442 Personal history of urinary calculi
CPT/HCPCS: 70360; 71046; 94640; 99283; J7512